=== PATIENT | male | born 1950 | race Caucasian/White ===

== ENCOUNTER 2023-07-04 11:08 | Emergency (ER) | payer MEDICARE ==
[2023-07-04] MEDS ORDERED: Ibuprofen 400 MG Tab PO ONE (14:58)
== END 2023-07-04 15:06 | disposition home or self-care (01) ==
LOC: JP.ED 11:08
DX: S61.211A Laceration without foreign body of left index finger without damage to nail, initial encounter (principal); I10 Essential (primary) hypertension; E78.00 Pure hypercholesterolemia, unspecified; K21.9 Gastro-esophageal reflux disease without esophagitis; Z79.899 Other long term (current) drug therapy; Z88.5 Allergy status to narcotic agent; Z91.030 Bee allergy status; W54.0XXA Bitten by dog, initial encounter
CPT/HCPCS: 99283